=== PATIENT | male | born 1985 | race Caucasian/White ===

== ENCOUNTER 2021-03-12 21:21 | Emergency (ER) | payer MEDICAID ==
[~2021-03-12] VITALS: Ht 172.7 cm; Wt 90.0 kg
[2021-03-12] MEDS ORDERED: ACETAMINOPHEN WITH CODEINE 300/30MG TABLET PO ONE (23:00)
[2021-03-12] MEDS ORDERED: LIDOCAINE HCL/PF 1% 10 MG/ML 5ML VIAL INFIL ONE (23:00)
[2021-03-12] MEDS ORDERED: TETANUS, DIPHTHERIA, PERTUSSIS VAC/PF 0.5ML (>10YR OLD) IM ONE (23:00)
[2021-03-12] MEDS ORDERED: BACITRACIN ZINC OINT UDPKT TOP ONE (23:00)
[2021-03-12] MEDS ORDERED: BO1 TP (23:43)
[2021-03-13 00:18] VITALS: BP 137/85
== END 2021-03-13 00:41 | disposition home or self-care (01) ==
LOC: ER 21:21
DX: S61.210A Laceration without foreign body of right index finger without damage to nail, initial encounter (principal); W45.8XXA Other foreign body or object entering through skin, initial encounter; Y93.89 Activity, other specified; Y92.89 Other specified places as the place of occurrence of the external cause; Y99.8 Other external cause status
CPT/HCPCS: 12001; 73140; 90471; 90715; 99283; A4217; J3490; Z7610

== ENCOUNTER 2022-12-13 09:49 | Emergency (ER) | payer MEDICAID ==
[~2022-12-13] VITALS: Ht 172.7 cm; Wt 91.0 kg
[~2022-12-13 09:49] MED LIST: BO1 TP
[2022-12-13 09:52] VITALS: TEMP 98.3; O2SAT 99
[2022-12-13 11:30] VITALS: BP 144/88; PULSE 86; RESP 18
[2022-12-13] MEDS ORDERED: IBUPROFEN 600MG TABLET PO ONE (11:30)
[2022-12-13] MEDS ORDERED: IBUP-2029 MT (12:05)
== END 2022-12-13 12:40 | disposition home or self-care (01) ==
LOC: ER 09:59
DX: H57.11 Ocular pain, right eye (principal)
CPT/HCPCS: 99282